=== PATIENT | female | born 1955 | race Caucasian/White ===

== ENCOUNTER 2019-05-15 15:17 | Observation (INO) ==
[2019-05-15] MEDS ORDERED: ZOFRAN IV ONE (15:42)
[2019-05-15] MEDS ORDERED: ASPIRIN PO ONE (15:42)
[2019-05-15] MEDS ORDERED: NITROGLYCERIN TOP ONE (15:42)
[2019-05-15] MEDS ORDERED: MORPHINE IV ONE (15:42)
[2019-05-15] MEDS ORDERED: NS 500 ML IV ONE (15:42)
[2019-05-15 16:00] LABS: BASO# 0.03 X1000 (0.0-0.2); BASO% 0.5 % (0.0-0.8); EOS# 0.07 X1000 (0.0-0.7); EOS% 1.2 % (0.0-10.0); HEMATOCRIT 37.2 % (37.0-47.0); HEMOGLOBIN 11.4 g/dL (12.0-16.0); LYMPH# 1.66 X1000 (1.2-3.4); LYMPH% 28.5 % (20.5-51.1); MCHC 30.6 g/dL (33-37); MONO# 0.46 X1000 (0.11-0.59); MONO% 7.9 % (1.7-9.3); MPV 10.4 FL (7.4-10.4); NEUT# 3.61 X1000 (1.4-6.5); NEUT% 61.9 % (42.2-75.2); PLT 269 X1000 (130-400); RBC 4.96 XMIL (4.2-5.4); RDW 17.3 % (11.5-14.5); WBC 5.83 X1000 (4.8-10.8)
[2019-05-15 16:08] LABS: PROTIME 13.3 Seconds (11.0-16.0)
[2019-05-15 16:09] LABS: PTT 27.1 Seconds (22.3-41.8)
[2019-05-15 16:32] LABS: AGAP 15; ALB/GLOB RATIO 1.3; ALKALINE PHOSPHATASE 153 U/L (32-104); BUN 18 mg/dL (8-22); CALCIUM 9.3 mg/dL (8.8-10.2); CHLORIDE 98 mmol/L (98-107); CK PROFILE 87 U/L (24-173); COSMO 271; CREATININE 0.8 mg/dL (0.5-0.9); ESTIMATED GFR > 60; GLUCOSE 108 mg/dL (70-104); GOT 51 U/L (10-30); GPT 19 U/L (10-36); POTASSIUM 5.2 mmol/L (3.5-5.1); SODIUM 134 mmol/L (136-145); TCO2 21 mmol/L (25-35)
[2019-05-15 16:34] LABS: URINE SOURCE CLEAN CATCH
[2019-05-15 16:39] LABS: BILIRUBIN URINE NEGATIVE (NEGATIVE); BLOOD URINE NEGATIVE (NEGATIVE); COLOR YELLOW; GLUCOSE URINE NEGATIVE (NEGATIVE); KETONE URINE NEGATIVE (NEGATIVE); LEUKOCYTES URINE NEGATIVE (NEGATIVE); NITRITE URINE NEGATIVE (NEGATIVE); PH URINE 7.5; PROTEIN URINE NEGATIVE (NEGATIVE); SP GRAVITY URINE 1.019; TURBIDITY URINE CLEAR (CLEAR); UROBILINOGEN URINE 2 mg/dL (NORMAL)
[2019-05-15 16:40] LABS: UR EPITHELIAL CELLS <10 /HPF (<10); URINE BACTERIA NEGATIVE /HPF; URINE RBC <10 /HPF (<10); URINE WBC <10 /HPF (<10)
--- NOTE | 2019-05-15 16:59 | Diag Imaging Result Doc PS360 ---
EXAM: CT RENAL STONE SEARCH INDICATION: right flank pain, hx of stones TECHNIQUE: This exam was performed using automated exposure control, adjustment of mA or kV according to patient size, and/or use of iterative reconstruction technique. COMPARISON: CT of the bony pelvis dated 07/07/2018. No prior abdominal CT is available for comparison. FINDINGS: There are bulky calcified granulomata throughout the spleen. There are several calcified granulomata scattered throughout the liver. There is a low dense solid appearing lesion involving the posterior aspect of the right hepatic lobe measuring up to 2.4 x 2.3 cm axially. It is nonspecific. Follow-up with a hemangioma protocol enhanced CT should be considered. There has been a prior cholecystectomy. The pancreas and adrenal glands are grossly unremarkable as imaged with unenhanced CT. No renal or ureteral stones are appreciated and there is no hydronephrosis. There is a 1.4 cm low dense focus associated with the right kidney that is nonspecific but probably represents a cyst containing proteinaceous debris. Urinary bladder is largely nondistended. There has been a prior hysterectomy. There has been a prior gastric bypass. There is abundant stool in the colon suggesting possible constipation. No focal bowel wall thickening is appreciated. There is no evidence of bowel obstruction. No focal inflammatory changes, free abdominal gas, or free fluid is identified. The bony structures are grossly intact. IMPRESSION: 1.No renal or ureteral stones and no evidence of acute obstructive uropathy. 2.Possible constipation. 3.Nonspecific low dense right hepatic lobe lesion as detailed above. 4.Other incidental/nonacute findings detailed above. Electronically signed by Adan Quinn 05/15/2019 4:57 PM
--- NOTE | 2019-05-15 17:36 | Diag Imaging Result Doc PS360 ---
EXAM: CHEST-2 VIEWS INDICATION: CP, palpitations TECHNIQUE: 2 views COMPARISON: 07/07/2018 FINDINGS: There is evidence of prior granulomatous disease, stable. The lungs are grossly clear. There is no discrete pleural fluid collection or pneumothorax. The cardiomediastinal silhouette and central vasculature are grossly unremarkable. The pacemaker is in stable position. IMPRESSION: No evidence of acute pathology by plain radiograph. Electronically signed by Adan Quinn 05/15/2019 5:33 PM
--- NOTE | 2019-05-15 17:44 | PROVIDER DOCUMENTATION ---
This chart was entered by Vinay Carlin Scribe, acting as scribe for Yang Combs MD. HPI-Chest Pain - General Chief Complaint: Chest Pain Stated Complaint: CP Time Seen by Provider: 05/15/19 15:29 Source: patient, family Allergies/Adverse Reactions: Patient Allergies Allergy/AdvReac Type Severity Reaction Status Date / Time codeine AdvReac NAUSEA Verified 05/15/19 16:01 prochlorperazine AdvReac NAUSEA Verified 05/15/19 16:01 [From Compazine] promethazine [From Phenergan] AdvReac Unknown Verified 05/15/19 16:01 Home Medications: Home Medication List Medication Instructions Recorded Confirmed Last Taken Type Aspirin [Aspir-Low] 07/04/17 Unknown History Methocarbamol [Robaxin-750] 750 mg PO TID PRN PRN #15 tablet 07/04/17 Unknown Rx Sertraline HCl [Zoloft] 200 mg PO DAILY 07/04/17 07/04/17 Unknown History - History of Present Illness-CP Nature of Presenting Problem: 63 yowf presents to the ed with cc of Chest Pains but states have improved. Pt states it feels " worse when laying down, better when sitting up" pt has a pacemaker since 2013. Pt was put on a beta hector Sunday. Pt states when she feels n/v she taste a "metal taste." Pt has a stress test scheduled on the . Pt has R LQ pain says feels like "kidney stones" Location: reports: central (says chest pains have improved) Chest Pain Radiation: reports: no radiation Quality of Pain: reports: tightness, other (pt states it feels uncomfortable and feels like heart is racing "like somethings wrong") Severity in ED: mild Onset/Duration: this morning Timing: still present, improving Context/Activities at Onset: reports: light activity Modifying Factors: improves with: other (pt states sitting up makes it better). worse with: lying down Associated Symptoms: reports: abdominal pain (rlq pain), nausea (pt states having a metal taste in mouth) Nitro Today/Relief: no nitro taken today Aspirin Treatment Today: 81 mg x 1, provided at home Prior Chest Pain/Cardiac Workup: reports: heart attack (pt states having heart attack at her doctors office), stress test (scheduled on the ), other (pacemaker (2013)) Similar Symptoms Previously?: Yes (has had heart attack) Recently Seen Here or By Another Healthcare Provider: Yes Review of Systems - Adult - REVIEW OF SYSTEMS - ADULT Constitutional: denies: chills, fever Eyes: reports: no symptoms reported Ears, Nose, Mouth & Throat: reports: no symptoms reported Cardiovascular: reports: chest pain (pt states feels worse than heart attack). denies: orthopnea, syncope Respiratory: denies: shortness of breath, wheezing Gastrointestinal: reports: no symptoms reported, see HPI, abdominal pain (R LQ Pt states " feels like kidney stones"), nausea. denies: diarrhea, vomiting Genitourinary: reports: no symptoms reported Musculoskeletal: reports: no symptoms reported Integumentary: reports: no symptoms reported Neurological: reports: headache/migraines (took baby asperin before coming to ED). denies: dizziness/vertigo, loss of balance, syncope Psychiatric: reports: no symptoms reported Endocrine: reports: no symptoms reported Hematologic/Lymphatic: reports: no symptoms reported Allergic/Immunologic: reports: no symptoms reported All Other Systems: Reviewed and Negative Past History - Adult - PAST MEDICAL HISTORY-ADULT Review of Records: reports: Old Records Reviewed, Nursing Assessment Review, Medications Reviewed, Social history reviewed & non-contributory. Major Childhood Illnesses: reports: denies history Cardiovascular: reports: cardiac disease, pacemaker Respiratory: reports: denies history Gastrointestinal: reports: denies history Obstetrical/Gynecological: reports: denies history Genitourinary: reports: kidney stones Musculoskeletal: reports: chronic pain Neurological: reports: CVA, headaches/migraines Endocrine/Immune: reports: denies history Other Conditions: reports: denies history - PRIOR SURGERIES/PROCEDURES Surgical/Procedure History: reports: appendectomy, cholecystectomy, pacemaker, hysterectomy, , other (heart ablasion) - IMMUNIZATION STATUS Childhood Immunizations: See Nurse Assessment Flu Vaccine: See Nurse Assessment - FAMILY HISTORY Family History: reviewed, not pertinent - SOCIAL HISTORY Smoking: denies Living Situation: family Physical Exam-General - PHYSICAL EXAM-ADULT Initial Vital Signs Reviewed: Yes - CONSTITUTIONAL General Appearance: appears well, alert, mild distress, thin - EYES Eyes: PERRL/EOMI, pink conjunctivae - HEAD, EARS, NOSE, MOUTH & THROAT HENMT: moist mucous membranes - NECK Neck: non-tender, full range of motion - RESPIRATORY Respiratory: lungs clear. negative: wheezing - CARDIOVASCULAR Cardiovascular: normal peripheral pulses, regular rate, rhythm - GASTROINTESTINAL (ABDOMEN) Abdominal Exam: normal bowel sounds, non tender, soft. negative: Valenzuela's sign - LYMPHATIC Lymphatic: no adenopathy - MUSCULOSKELETAL Back Exam: normal inspection, no CVA tenderness Extremity: normal range of motion, non-tender, normal gait, swelling (1 + pitting edema of bilateral lower extremities) - SKIN Integumentary: normal color, warm/dry, swelling (1 + pitting edema of bilateral lower extremities) - NEUROLOGIC Neurologic: grossly normal - PSYCHIATRIC Psych/Mental Status: normal mood/affect, normal thought content, normal thought process, oriented x 3 - HEART Score HEART Score: History: Highly Suspicious HEART Score: ECG: Normal HEART Score: Age: 45-65 Years HEART Score: Risk Factors for Atherosclerotic Disease: 1 or 2 Risk Factors HEART Score: Troponin: < or = Normal Limit Total HEART Score:: 4 Progress - PLAN OF CARE/RESULTS Progress/Plan/Lab Results: Vital Signs - 8 hr 05/15/19 15:18 Temperature 97.6 F Pulse Rate 80 Respiratory Rate 20 Blood Pressure 112/75 O2 Sat by Pulse Oximetry 100 Laboratory Results - last 24 hr 05/15/19 05/15/19 05/15/19 15:49 15:49 15:49 WBC 5.83 RBC 4.96 Hgb 11.4 L Hct 37.2 MCV 75.0 L MCH 23.0 L MCHC 30.6 L RDW Std Deviation 17.3 H Plt Count 269 MPV 10.4 Immature Gran % (Auto) 0.0 Neut % (Auto) 61.9 Lymph % (Auto) 28.5 Dickenson % (Auto) 7.9 Eos % (Auto) 1.2 Baso % (Auto) 0.5 Immature Gran # (Auto) 0.00 Neut # (Auto) 3.61 Lymph # (Auto) 1.66 Dickenson # (Auto) 0.46 Eos # (Auto) 0.07 Baso # (Auto) 0.03 PT INR PTT (Actin FS) Sodium 134 L Potassium 5.2 H Chloride 98 Carbon Dioxide 21 L Anion Gap 15 BUN 18 Creatinine 0.8 Estimated GFR/1.73 m2 > 60 BUN/Creatinine Ratio 23 Glucose 108 H Calculated Osmolality 271 Calcium 9.3 Total Bilirubin 0.50 AST 51 H ALT 19 Alkaline Phosphatase 153 H Creatine Kinase 87 Troponin T Alq-K-Widmjhesadp Pept 189 Total Protein 7.0 Albumin 4.0 Globulin 3.0 Albumin/Globulin Ratio 1.3 Urine Source Urine Color Urine Turbidity Urine pH Ur Specific [place] Urine Protein Ur Glucose (Stick) Ur Ketones (Stick) Urine Blood Urine Nitrite Urine Bilirubin Urobilinogen Dipstick Urine Leukocytes Urine WBC (Auto) Urine RBC (Auto) U Epithel Cells (Auto) Urine Bacteria (Auto) 05/15/19 05/15/19 05/15/19 15:49 15:49 16:19 WBC RBC Hgb Hct MCV MCH MCHC RDW Std Deviation Plt Count MPV Immature Gran % (Auto) Neut % (Auto) Lymph % (Auto) Dickenson % (Auto) Eos % (Auto) Baso % (Auto) Immature Gran # (Auto) Neut # (Auto) Lymph # (Auto) Dickenson # (Auto) Eos # (Auto) Baso # (Auto) PT 13.3 INR 1.00 PTT (Actin FS) 27.1 Sodium Potassium Chloride Carbon Dioxide Anion Gap BUN Creatinine Estimated GFR/1.73 m2 BUN/Creatinine Ratio Glucose Calculated Osmolality Calcium Total Bilirubin AST ALT Alkaline Phosphatase Creatine Kinase Troponin T < 0.010 Edy-L-Ufylnekkgpy Pept Total Protein Albumin Globulin Albumin/Globulin Ratio Urine Source CLEAN CATCH Urine Color YELLOW Urine Turbidity CLEAR Urine pH 7.5 Ur Specific [place] 1.019 Urine Protein NEGATIVE Ur Glucose (Stick) NEGATIVE Ur Ketones (Stick) NEGATIVE Urine Blood NEGATIVE Urine Nitrite NEGATIVE Urine Bilirubin NEGATIVE Urobilinogen Dipstick 2 A Urine Leukocytes NEGATIVE Urine WBC (Auto) <10 Urine RBC (Auto) <10 U Epithel Cells (Auto) <10 Urine Bacteria (Auto) NEGATIVE Orders Category Date Time Status Cardiac Monitoring DIRECTED Care 05/15/19 15:39 Active Nursing- Obtain EKG once Care 05/15/19 17:34 Active Oxygen Therapy- ED Nursing DIRECTED Care 05/15/19 15:39 Active Saline Loc NOW Care 05/15/19 15:39 Active CHEST-2 VIEWS [RAD] Stat Exams 05/15/19 15:[address] RENAL STONE SEARCH [CT] Stat Exams 05/15/19 15:39 Completed CBC WITH ELECTRONIC DIFF [HEME] Stat Lab 05/15/19 15:49 Completed CK PROFILE [SP CHEM] Stat Lab 05/15/19 15:49 Completed COMPREHENSIVE METABOLIC PANEL [CHEM] Stat Lab 05/15/19 15:49 Completed PRO B-NATRIURETIC PEPTIDE Stat Lab 05/15/19 15:49 Completed PROTIME WITH INR [COAG] Stat Lab 05/15/19 15:49 Completed PTT [COAG] Stat Lab 05/15/19 15:49 Completed TROPONIN T Stat Lab 05/15/19 15:49 Completed TROPONIN T Stat Lab 05/15/19 17:34 Uncollected URINALYSIS W/POSS RFLX CULT [URINALYSIS] Stat Lab 05/15/19 16:19 Completed 0.9% Sodium Chloride Inj [Ns] 500 ml Med 05/15/19 15:42 Discontinued IV 999 mls/hr Aspirin Med 05/15/19 15:42 Discontinued 243 mg PO NOW ONE Morphine Med 05/15/19 15:42 Discontinued 4 mg IV NOW ONE Nitroglycerin Med 05/15/19 15:42 Discontinued 0.5 inch TOP NOW ONE Ondansetron [Zofran] Med 05/15/19 15:42 Discontinued 4 mg IV NOW ONE CP/SOB/Palp >45 yrs of Age Stat Oth 05/15/19 15:39 Ordered EKG [EKG] Q2H PRN Ther 05/15/19 15:39 Ordered EKG [EKG] Q2H PRN Ther 05/16/19 15:39 Ordered EKG [EKG] Stat Ther 05/15/19 17:34 Ordered Result Diagrams: 05/15/19 15:49 05/15/19 15:49 - REASSESSMENT Reassessment #1 Time Reassessed: 17:41 Status: improving (States feels better, but still has some chest tightness. Will ask hospitalist to admit due to age and intermittent chest tightness despite negative EKGs and Rhonda.) - EKG 1 Time of EKG reading by physician:: 15:31 EKG Read and Signed by:: Yang Combs EKG Interpretation (*Must complete 3 of following elements*): Abnormal Rate: 71 Rhythm: NSR [place]: normal QRS: other (septal infarct, atrial paced rhythm) OK Interval: normal ST Wave: normal Comments: 1st degree AV block. Artifact present. -Dr. Combs - XRAY 1 XRAY Study: Chest Impression: Abnormal (read by me, COPD changes, pacemaker, calcified granuloma right lower chest, no acute findings. 1742) - CT/MRI 1 CT Study: Renal Stone Impression: See EMR Report ([facility] - [address], [address], [place] [address] [facility] - [address] , [place] [address] Department of Imaging Patient: PARI MCKINNON Date: 05/15/19#: [id number] : 1955DM Status: REG [facility]#: [id number] Age/Sex: 63/FRoom/Bed: Loc: ED Ordering Physician: Yang Combs MD Family Physician: Aniceto Jackson MD Reason for Procedure: right flank pain, hx of stones Signed EXAM: CT RENAL STONE SEARCH INDICATION: right flank pain, hx of stones TECHNIQUE: This exam was performed using automated exposure control, adjustment of mA or kV according to patient size, and/or use of iterative reconstruction technique. COMPARISON: CT of the bony pelvis dated 07/07/2018. No prior abdominal CT is available for comparison. FINDINGS: There are bulky calcified granulomata throughout the spleen. There are several calcified granulomata scattered throughout the liver. There is a low dense solid appearing lesion involving the posterior aspect of the right hepatic lobe measuring up to 2.4 x 2.3 cm axially. It is nonspecific. Follow-up with a hemangioma protocol enhanced CT should be considered. There has been a prior cholecystectomy. The pancreas and adrenal glands are grossly unremarkable as imaged with unenhanced CT. No renal or ureteral stones are appreciated and there is no hydronephrosis. There is a 1.4 cm low dense focus associated with the right kidney that is nonsp ecific but probably represents a cyst containing proteinaceous debris. Urinary bladder is largely nondistended. There has been a prior hysterectomy. There has been a prior gastric bypass. There is abundant stool in the colon suggesting possible constipation. No focal bowel wall thickening is appreciated. There is no evidence of bowel obstruction. No focal inflammatory changes, free abdominal gas, or free fluid is identified. The bony structures are grossly intact. IMPRESSION: 1.No renal or ureteral stones and no evidence of acute obstructive uropathy. 2.Possible constipation. 3.Nonspecific low dense right hepatic lobe lesion as detailed above. 4.Other incidental/nonacute findings detailed above. Electronically signed by Adan Quinn 05/15/2019 4:57 PM 05/15/19 1657 Interpreting Physician: Adan Quinn MD Dictated Date/Time: 05/15/19 165 cc: Yang Combs MD; Aniceto Jackson MD) - CONSULTS/PCP/HOSPITALIST Notification #1 *Consult/PCP/Hospitalist*: BENNY Aguayo Time Discussed: 17:43 Consult Disposition: Will see in ED, Admit Departure - Departure Date of Disposition Decision: 05/15/19 Time of Disposition Decision: 17:43 DIAGNOSIS: Chest pain of uncertain etiology, Lower abdominal pain of unknown etiology Disposition: ADMITTED INPATIENT 09 Certified Medical Emergency: Emergent Condition: Fair Referrals and Follow-Ups: Aniceto Jackson MD [Primary Care Provider] - - Critical Care Note This patient required my direct & personal management of CC.: No Attestation - Physician/ JENNIFER Attestation Patient care was provided by Advanced Practice Provider:: No The physician spent face to face time with patient:: Yes Advanced Practice Provider documentation review:: Supervising physician onsite and consulted in the evaluation and care of this patient. The physician did have a face to face encounter with the patient. This chart was documented by the indicated scribe, (Vinay Carlin Scribe) and accurately reflects the services I performed and decisions made by me, Yang Combs MD, as attested by the provider's signature.
--- NOTE | 2019-05-15 17:46 | EKG Report ---
Test Performed on : 05/15/2019 5:43:35 PM Test Reason : CP Blood Pressure : / mmHG Vent. Rate : 071 BPM Atrial Rate : 071 BPM P-R Int : 214 ms QRS Dur : 086 ms QT Int : 402 ms P-R-T Axes : 000 003 043 degrees QTc Int : 436 ms Atrial-paced rhythm with prolonged AV conduction Low voltage QRS Abnormal ECG When compared with ECG of 07-JUL-2018 23:01, No significant change was found Unconfirmed Result
[2019-05-15] MEDS ORDERED: LOPRESSOR PO ONE (18:11)
[2019-05-15] MEDS ORDERED: G.I. COCKTAIL PO ONE (18:25)
--- NOTE | 2019-05-15 18:26 | ED EKG INTERP ---
EKG Interpretation - EKG Time of EKG reading by physician:: 18:25 EKG Read and Signed by:: Yang Combs EKG Interpretation (*Must complete 3 of following elements*): Abnormal Rate: 71 Rhythm: NSR/atrial paced [place]: normal QRS: normal, other (early transition) LA Interval: normal ST Wave: normal Prior EKG Comparison: unchanged from prior Attestation - Physician/ JENNIFER Attestation Patient care was provided by Advanced Practice Provider:: No The physician spent face to face time with patient:: Yes Advanced Practice Provider documentation review:: Supervising physician onsite and consulted in the evaluation and care of this patient. The physician did have a face to face encounter with the patient.
--- NOTE | 2019-05-15 20:35 | HISTORY AND PHYSICAL ---
CHIEF COMPLAINT: Chest pain. HISTORY OF PRESENT ILLNESS: This is a 63-year-old female who presented to the emergency room complaining of chest pain. She states that she has been having chest pain off and on for the last few weeks. She was evaluated by her machine erector Dr. Cortez for this. She was started on metoprolol Sunday, and she has a stress test scheduled 05/22. She described this as a pressure- type pain that was midsternal, with no radiation. She did state that sitting up made it feel better. She denied any syncope or dizziness. She did also complain of some right lower quadrant pain. She was a little tender on epigastric palpation, and she has had some nausea. PAST MEDICAL HISTORY: CVA, kidney stones, chronic migraines, fibromyalgia, rheumatoid arthritis, irregular heart rhythm. PAST SURGICAL HISTORY: Appendectomy, cholecystectomy, , kidney stone lithotripsy, gastric bypass and pacemaker placement. SOCIAL HISTORY: She denies alcohol, tobacco or illicit drug use. ALLERGIES: Codeine, Compazine and Phenergan, all of which cause nausea. HOME MEDICATIONS: A list will be obtained by the nursing staff and once verified, we will review and restart as appropriate. REVIEW OF SYSTEMS: Discussed with the patient, with pertinent positives stated in the HPI. She denied any syncope, dizziness, any shortness of breath, cough, fever, chills, any night sweats, recent weight loss or weight gain, any diarrhea, constipation, black or bloody vomitus or stools, any hematuria, dysuria, frequency, urgency. PHYSICAL EXAMINATION: GENERAL: This is a 63-year-old woman who is lying on the stretcher in the emergency room in no distress. VITAL SIGNS: Blood pressure is 112/75 with a heart rate of 80, respirations 20, temperature is 97.6 degrees oral with room air saturations 100%. HEENT: Head is normocephalic, atraumatic. Mucous membranes are moist. NECK: Supple, with trachea midline. CARDIOVASCULAR: Regular rate and rhythm. S1, S2 appreciated. No murmur. She has no lower extremity edema, with peripheral pulses palpable x4 extremities. Calves are nontender. PULMONARY: Breath sounds are clear. There is no increased work of breathing noted. Chest rises and falls symmetric with respiration GASTROINTESTINAL: Abdomen is soft. She does have a little epigastric tenderness. Nondistended, with bowel sounds in all 4 quadrants. GENITOURINARY: No CVA nor suprapubic tenderness. SKIN: Warm and dry. NEUROLOGIC: She is alert and oriented. LABORATORY DATA: WBC is 5.8 with hemoglobin 11.4, hematocrit 37 and platelets 269,000. Sodium 134, potassium 5.2, BUN 18, creatinine 0.8 with a glucose of 108. Troponin is negative on multiple occasions. Urinalysis is essentially negative. DIAGNOSTIC DATA: 1. Renal CT revealed no renal stones; no ureteral stones; possible constipation. 2. Chest x-ray revealed no evidence of acute pathology. ASSESSMENT AND PLAN: Chest pain. The patient is pain-free at present. She denies any nausea or any shortness of breath. She will be admitted to the hospital and placed on telemetry. We will continue to trend cardiac profile and troponins. Repeat electrocardiogram in the morning. We will identify and continue her home medications. We will give a GI cocktail if she has epigastric pain again. We will place her on proton pump inhibitor. Plan has been discussed with Dr. Sr. Further treatments pending hospital course. Dictated by BENNY Barber for Domingo Sr MD cc: BENNY Barber Agree with the above. the following is my own face to face assessment. heart: RRR. lungs: CTAB. patient's pain extends down her left lateral chest wall to her upper abdomen. likely noncardiac chest pain but will rule out ACS. MTDD
[2019-05-15] MEDS ORDERED: ABILIFY PO SCH (21:00)
[2019-05-15] MEDS ORDERED: ADDERALL PO SCH (21:00)
--- NOTE | 2019-05-16 07:12 | EKG Report ---
Test Performed on : 05/16/2019 06:08:37 AM Test Reason : CP Blood Pressure : / mmHG Vent. Rate : 070 BPM Atrial Rate : 070 BPM P-R Int : 226 ms QRS Dur : 088 ms QT Int : 406 ms P-R-T Axes : 000 051 063 degrees QTc Int : 438 ms Atrial-paced rhythm with prolonged AV conduction Abnormal ECG When compared with ECG of 15-MAY-2019 17:43, (Unconfirmed) No significant change was found Confirmed by Macarena Sebastian MD ([id number]) on 05/18/2019 9:32:37 PM
[2019-05-16 07:26] VITALS: BP 95/58
[2019-05-16 08:26] LABS: HEMOGLOBIN 10.3 g/dL (12.0-16.0); MCH 22.8 PG (27-31); MCHC 30.3 g/dL (33-37); MCV 75.2 FL (81-99); RBC 4.52 XMIL (4.2-5.4); RDW 17.1 % (11.5-14.5); WBC 4.92 X1000 (4.8-10.8)
[2019-05-16 08:27] LABS: MPV 10.3 FL (7.4-10.4)
[2019-05-16 08:49] LABS: AGAP 10; BUN 17 mg/dL (8-22); CHLORIDE 103 mmol/L (98-107); GLUCOSE 98 mg/dL (70-104); SODIUM 139 mmol/L (136-145); TCO2 26 mmol/L (25-35)
[2019-05-16 08:50] LABS: CALCIUM 9.1 mg/dL (8.8-10.2); COSMO 279; CREATININE 0.9 mg/dL (0.5-0.9); ESTIMATED GFR > 60
--- NOTE | 2019-05-17 21:35 | DISCHARGE SUMMARY ---
ADMISSION DATE: 05/15/2019 DISCHARGE DATE: 05/16/2019 DIAGNOSES: 1. Chest pain. 2. History of irregular heart rhythm . DIAGNOSTICS: 1. Chest x-ray revealed no evidence of acute pathology. 2. Renal CT no renal or ureteral stones, no evidence of acute obstructive uropathy, possible constipation, nonspecific low dose right hepatic lobe lesion. 3. Chest x-ray with no evidence of acute pathology. 4. Renal CT no renal stones, no ureteral stones, possible constipation . HOSPITAL COURSE: Ms Boyd presented to the emergency room complaining of chest pain that she had been having off and on for few weeks. She reported being evaluated just a few days prior by her ship's carpenter Dr. Cortez. She ruled out by troponins and EKG. She when asked to point to the area of pain she pointed epigastric area. She was given a GI cocktail and pain did resolve. She was found to be constipated, which after bowel regimen has resolved. Thankfully as stated above she had no recurrence of pain and was able to be discharged. DISCHARGE PHYSICAL EXAM: Vital signs: Blood pressure is 99/60 with a heart rate of 74, respirations 19, temperature 98.1 degrees oral with room air saturations 98 to 99 percent. Cardiovascular: Regular rate and rhythm. S1, S2 appreciated. She has no lower extremity edema. Peripheral pulses palpable x4 extremities. No murmur. Pulmonary: Breath sounds clear, no increased work of breathing noted. Chest rise and fall symmetric respiration. Gastrointestinal: Abdomen soft, nontender, nondistended, bowel sounds in all 4 quadrants. Neurologic: She is alert, oriented x3. DISCHARGE MEDICATIONS: 1. Voltaren 50 mg p.o. as directed. 2. Adderall 10 mg p.o. b.i.d. 3. Butrans 1 patch every 7 days. 4. Toprol-XL 25 mg p.o. daily. 5. Guanfacine ER 2 mg p.o. daily. FOLLOWUP: 1. Dr. Cortez as previously scheduled. She was instructed to keep the appointment to have her stress test as Dr. Cortez had scheduled. 2. Dr. Aniceto Jackson as previously scheduled . She is instructed to return to the ER call to be seen sooner for recurring chest pain, palpitations, syncope, dizzy, dizziness, any nausea, vomiting, diarrhea, constipation, black or bloody vomitus or stools, hematuria, dysuria, frequency, urgency. She was discharged home in stable condition with family members. TIME SPENT: Greater than 30 minutes. Dictated by BENNY Barber for Domingo Sr MD cc: BENNY Barber Agree with the above. the following is my own face to face assessment. abdomen soft, minimal epigastric tenderness, bowel sounds positive. heart: RRR. ruled out for ACS. suspect GI cause of patient's discomfort. advised patient to consider trial of OTC PPI. follow up with PCP and her regular ship's carpenter. MICHEL
--- NOTE | 2019-05-23 09:49 | EKG Report ---
Test Performed on : 05/15/2019 3:24:30 PM Test Reason : ED. Canc in error Blood Pressure : / mmHG Vent. Rate : 071 BPM Atrial Rate : 071 BPM P-R Int : 192 ms QRS Dur : 068 ms QT Int : 394 ms P-R-T Axes : 000 037 062 degrees QTc Int : 428 ms Atrial-paced rhythm Septal infarct , age undetermined Abnormal ECG When compared with ECG of 07-JUL-2018 23:01, Septal infarct is now present Unconfirmed Result
== END 2019-05-16 12:36 | disposition home or self-care (01) ==
LOC: 1N 15:17 → ED 15:17
PROVIDERS: ATTEND Internal Medicine